=== PATIENT | male | born 1940 | race Caucasian/White ===

== ENCOUNTER 2019-05-17 10:07 | Inpatient (IN) ==
[2019-05-17] MEDS ORDERED: DEXTROSE 50% 25 GM/50 ML VIAL IV PRN ×2 (16:57→16:59)
[2019-05-17] MEDS ORDERED: GLUCAGON 1 MG VIAL IM PRN ×2 (16:57→16:59)
[2019-05-17] MEDS ORDERED: ACETAMINOPHEN 325 MG TABLET PO PRN (16:57)
[2019-05-17] MEDS ORDERED: INSULIN REGULAR 100 UNIT/ML ONE (18:47)
[2019-05-17] MEDS: INSULIN REGULAR 100 UNIT/ML SUBCUT SCH ×2 (18:51→21:00)
[2019-05-17 18:52] LABS: Hematocrit 24.8 VOL% (42.0-52.0); Immature Granulocytes % 10.3 %; Immature Granulocytes Absolute 0.07 #; Lymphocytes # 0.2 10*3/uL (1.4-4.0); Lymphocytes % 30.9 % (21.2-54.2); Mean Corpuscular HGB Conc 32.3 GM/DL (32-36); Mean Corpuscular Volume 104.6 FL (87-102); Monocytes % 8.8 % (1.7-12.7); Red Blood Count 2.37 MC/CUMM (3.8-5.5); Red Cell Distribution Width 15.9 % (9.3-17.3)
[2019-05-17 19:01] LABS: Platelet Count 12 T/CUMM (130-400); White Blood Count 0.7 T/CUMM (4-12)
[2019-05-17 19:04] LABS: INR 1.2; PT Patient Result 12.6 SECS (9.6-12.2)
[2019-05-17 19:12] LABS: Albumin 1.6 G/DL (3.4-5.0); Bilirubin,Total 0.7 MG/DL (0.2-1.0); Calcium 7.6 MG/DL (8.5-10.1); Osmolality,Calculated 281.4 MOS/KG (273-304); Total Protein 5.7 G/DL (6.4-8.3)
[2019-05-17 19:15] LABS: Anisocytosis 1+; Band Neutrophils 2 % (0-10); Elliptocytes Few; Lymphocytes 40 % (20-55); Segmented Neutrophils 51 % (50-85); Total Cells Counted 101
[2019-05-17 19:16] LABS: Hypochromasia 1+; Platelet Estimate Decreased; Polychromasia Few
[2019-05-17] MEDS: SODIUM CHLORIDE 0.9% 1,000 ML IV SCH (19:21)
[2019-05-17] MEDS ORDERED: ALBUTEROL/IPRATROPIUM 3 ML NEB RESP TX PRN (19:24)
[2019-05-18 02:23] LABS: Apearance,Urine CLEAR (Clear); Bilirubin,Urine Negative (Negative); Blood, Urine Negative (Negative); Glucose,Urine (UA) >=500 mg/dL (Negative); Ketones,Urine Negative (Negative); Nitrite,Urine Negative (Negative); Protein,Urine Negative; RBC,Urine 4 /HPF (0-4); Urine Color Yellow (Yellow); Urine Specific Gravity 1.025 (1.001-1.035); Urine Urobilinogen < 2.0 EU/DL (0.2-1.0); WBC,Urine <1 /HPF (0-6)
[2019-05-18 05:39] LABS: Hematocrit 25.1 VOL% (42.0-52.0); Hemoglobin 8.1 GM/DL (14.0-18.0); Immature Granulocytes % 9.5 %; Immature Granulocytes Absolute 0.07 #; Lymphocytes # 0.4 10*3/uL (1.4-4.0); Mean Corpuscular HGB Conc 32.3 GM/DL (32-36); Mean Corpuscular Volume 104.6 FL (87-102); Monocytes % 6.8 % (1.7-12.7); Neutrophils % 33.7 % (38.7-73.9)
[2019-05-18 05:45] LABS: Platelet Count 12 T/CUMM (130-400); White Blood Count 0.7 T/CUMM (4-12)
[2019-05-18 06:01] LABS: Risk Ratio 3.28
[2019-05-18 06:16] LABS: Calcium 7.9 MG/DL (8.5-10.1)
[2019-05-18 06:18] LABS: Band Neutrophils 13 % (0-10); Lymphocytes 50 % (20-55); Platelet Estimate Decreased; Segmented Neutrophils 25 % (50-85); Total Cells Counted 101
[2019-05-18 06:19] LABS: Hypochromasia Slight
[2019-05-18] MEDS: INSULIN REGULAR 100 UNIT/ML SUBCUT SCH ×4 (07:30→20:23)
[2019-05-18] MEDS ORDERED: SODIUM CHLORIDE 0.9% 1,000 ML IV PRN (07:54)
[2019-05-18] MEDS ORDERED: SODIUM CHLORIDE 0.9% 1,000 ML IV SCH (08:00)
[2019-05-18] MEDS ORDERED: FLUTICASONE FUROATE BOTH NARES SCH (09:00)
[2019-05-18] MEDS ORDERED: DOXAZOSIN 4 MG TABLET PO SCH (09:00)
[2019-05-18] MEDS ORDERED: FINASTERIDE 5 MG TABLET PO SCH (09:00)
[2019-05-18] MEDS: FUROSEMIDE 20 MG TABLET PO SCH (09:48)
[2019-05-18] MEDS: ESCITALOPRAM 10 MG TABLET PO SCH (09:49)
[2019-05-18] MEDS: SODIUM CHLORIDE 0.9% 1,000 ML IV SCH (09:50)
[2019-05-18] MEDS: METOPROLOL SUCCINATE XL 25 MG TABLET PO SCH (10:04)
[2019-05-18] MEDS: SODIUM CHLORIDE 0.9% IV SCH (12:14)
[2019-05-18] MEDS: AZACITIDINE IV SCH (12:14)
[2019-05-18] MEDS: ONDANSETRON 4 MG/2 ML VIAL IV PRN (12:15)
[2019-05-18] MEDS: ALBUTEROL/IPRATROPIUM 3 ML NEB RESP TX SCH ×2 (15:39→19:15)
[2019-05-18] MEDS: LEVOFLOXACIN 500 MG TABLET PO SCH (16:38)
[2019-05-18] MEDS: INSULIN GLARGINE 100 UNIT/ML SUBCUT SCH (16:38)
[2019-05-18] MEDS: DOXAZOSIN 4 MG TABLET PO SCH (20:22)
[2019-05-18] MEDS: FINASTERIDE 5 MG TABLET PO SCH (20:25)
[2019-05-18] MEDS ORDERED: ATORVASTATIN 40 MG TABLET PO SCH (21:00)
[2019-05-19] MEDS: ALBUTEROL/IPRATROPIUM 3 ML NEB RESP TX SCH ×4 (00:35→19:47)
[2019-05-19] MEDS ORDERED: FUROSEMIDE 20 MG TABLET PO ONE (00:46)
[2019-05-19 05:06] LABS: Hematocrit 25.8 VOL% (42.0-52.0); Hemoglobin 8.3 GM/DL (14.0-18.0); Immature Granulocytes % 9.4 %; Immature Granulocytes Absolute 0.12 #; Lymphocytes # 0.6 10*3/uL (1.4-4.0); Mean Corpuscular HGB Conc 32.2 GM/DL (32-36); Mean Corpuscular Volume 104.9 FL (87-102); Mean Platelet Volume 11.9 FL (9.6-12.0); Monocytes % 4.7 % (1.7-12.7); Neutrophils % 37.9 % (38.7-73.9); Red Blood Count 2.46 MC/CUMM (3.8-5.5); Red Cell Distribution Width 16.2 % (9.3-17.3); White Blood Count 1.3 T/CUMM (4-12)
[2019-05-19 05:10] LABS: Platelet Count 41 T/CUMM (130-400)
[2019-05-19 06:03] LABS: Lymphocytes 66 % (20-55); Segmented Neutrophils 28 % (50-85); Total Cells Counted 100
[2019-05-19 06:04] LABS: Atypical Lymphocytes Few; Hypochromasia 1+; Ovalocytes Slight; Platelet Estimate Decreased
[2019-05-19] MEDS: INSULIN REGULAR 100 UNIT/ML SUBCUT SCH ×3 (08:06→17:21)
[2019-05-19] MEDS: INSULIN GLARGINE 100 UNIT/ML SUBCUT SCH (08:48)
[2019-05-19] MEDS: ESCITALOPRAM 10 MG TABLET PO SCH (08:49)
[2019-05-19] MEDS: METOPROLOL SUCCINATE XL 25 MG TABLET PO SCH (08:49)
[2019-05-19] MEDS: FUROSEMIDE 20 MG TABLET PO SCH (08:50)
[2019-05-19] MEDS: SODIUM CHLORIDE 0.9% IV SCH (09:54)
[2019-05-19] MEDS: AZACITIDINE IV SCH (09:54)
[2019-05-19] MEDS: ONDANSETRON 4 MG/2 ML VIAL IV PRN (12:22)
[2019-05-19] MEDS: DOXAZOSIN 4 MG TABLET PO SCH (21:02)
[2019-05-19] MEDS: FINASTERIDE 5 MG TABLET PO SCH (21:02)
[2019-05-20] MEDS: INSULIN REGULAR 100 UNIT/ML SUBCUT SCH ×5 (01:25→21:32)
[2019-05-20] MEDS: ALBUTEROL/IPRATROPIUM 3 ML NEB RESP TX SCH ×4 (01:58→19:40)
[2019-05-20 04:38] LABS: Hematocrit 23.4 VOL% (42.0-52.0); Hemoglobin 7.6 GM/DL (14.0-18.0); Immature Granulocytes Absolute 0.07 #; Lymphocytes # 0.5 10*3/uL (1.4-4.0); Mean Corpuscular HGB Conc 32.5 GM/DL (32-36); Mean Corpuscular Volume 103.1 FL (87-102); Mean Platelet Volume 12.8 FL (9.6-12.0); Red Blood Count 2.27 MC/CUMM (3.8-5.5); Red Cell Distribution Width 16.1 % (9.3-17.3)
[2019-05-20 04:57] LABS: Platelet Count 32 T/CUMM (130-400)
[2019-05-20 05:04] LABS: Albumin 1.8 G/DL (3.4-5.0); Bilirubin,Total 1.4 MG/DL (0.2-1.0); Calcium 7.9 MG/DL (8.5-10.1); Total Protein 5.5 G/DL (6.4-8.3)
[2019-05-20 05:14] LABS: Eosinophils 5 % (0-10); Hypochromasia 1+; Lymphocytes 46 % (20-55); Segmented Neutrophils 42 % (50-85); Total Cells Counted 100
[2019-05-20 05:17] LABS: Anisocytosis 1+; Microcytosis 1+; Ovalocytes Few
[2019-05-20 05:18] LABS: Atypical Lymphocytes Few; Platelet Estimate Decreased
[2019-05-20] MEDS ORDERED: SODIUM CHLORIDE 0.9% 1,000 ML IV PRN (07:53)
[2019-05-20] MEDS: METOPROLOL SUCCINATE XL 25 MG TABLET PO SCH (09:38)
[2019-05-20] MEDS: FUROSEMIDE 20 MG TABLET PO SCH (09:38)
[2019-05-20] MEDS: ESCITALOPRAM 10 MG TABLET PO SCH (09:39)
[2019-05-20] MEDS: ONDANSETRON 4 MG/2 ML VIAL IV SCH (09:40)
[2019-05-20] MEDS: INSULIN GLARGINE 100 UNIT/ML SUBCUT SCH (09:43)
[2019-05-20] MEDS: SODIUM CHLORIDE 0.9% IV SCH (09:57)
[2019-05-20] MEDS: AZACITIDINE IV SCH (09:57)
[2019-05-20] MEDS ORDERED: ACETAMINOPHEN 500 MG TABLET PO SCH (10:00)
[2019-05-20] MEDS ORDERED: diphenhydrAMINE CAP 25 MG CAPSULE PO SCH (10:00)
[2019-05-20] MEDS ORDERED: ACETAMINOPHEN 500 MG TABLET PO ONE (11:28)
[2019-05-20] MEDS ORDERED: diphenhydrAMINE CAP 25 MG CAPSULE PO ONE (11:30)
[2019-05-20] MEDS: LEVOFLOXACIN 500 MG TABLET PO SCH (15:09)
[2019-05-20] MEDS: FINASTERIDE 5 MG TABLET PO SCH (21:31)
[2019-05-20] MEDS: DOXAZOSIN 4 MG TABLET PO SCH (21:31)
[2019-05-21] MEDS: ALBUTEROL/IPRATROPIUM 3 ML NEB RESP TX SCH ×4 (00:40→20:22)
[2019-05-21 04:47] LABS: Eosinophils % 0.9 % (0.00-10.9); Hematocrit 30.3 VOL% (42.0-52.0); Hemoglobin 9.9 GM/DL (14.0-18.0); Immature Granulocytes % 8.3 %; Immature Granulocytes Absolute 0.09 #; Lymphocytes # 0.5 10*3/uL (1.4-4.0); Lymphocytes % 46.8 % (21.2-54.2); Mean Corpuscular HGB Conc 32.7 GM/DL (32-36); Mean Corpuscular Volume 97.1 FL (87-102); Mean Platelet Volume 12.9 FL (9.6-12.0); Monocytes % 7.3 % (1.7-12.7); Neutrophils % 36.7 % (38.7-73.9); Red Blood Count 3.12 MC/CUMM (3.8-5.5); Red Cell Distribution Width 19.9 % (9.3-17.3); White Blood Count 1.1 T/CUMM (4-12)
[2019-05-21 04:56] LABS: Platelet Count 30 T/CUMM (130-400)
[2019-05-21 05:22] LABS: Hypochromasia 1+; Lymphocytes 57 % (20-55); Ovalocytes 1+; Platelet Estimate Decreased; Segmented Neutrophils 35 % (50-85); Tear Drop Cells Few
[2019-05-21 05:23] LABS: Atypical Lymphocytes Few; Reactive Lymphocytes Few; Total Cells Counted 100
[2019-05-21] MEDS: ONDANSETRON 4 MG/2 ML VIAL IV SCH (08:45)
[2019-05-21] MEDS: INSULIN GLARGINE 100 UNIT/ML SUBCUT SCH (08:46)
[2019-05-21] MEDS: INSULIN REGULAR 100 UNIT/ML SUBCUT SCH ×4 (08:46→21:24)
[2019-05-21] MEDS: ESCITALOPRAM 10 MG TABLET PO SCH (08:47)
[2019-05-21] MEDS: METOPROLOL SUCCINATE XL 25 MG TABLET PO SCH (08:47)
[2019-05-21] MEDS: FUROSEMIDE 20 MG TABLET PO SCH (08:47)
[2019-05-21] MEDS: AZACITIDINE IV SCH (09:32)
[2019-05-21] MEDS: SODIUM CHLORIDE 0.9% IV SCH (09:32)
[2019-05-21] MEDS ORDERED: metFORMIN 500 MG TABLET PO SCH (17:00)
[2019-05-21] MEDS: DOXAZOSIN 4 MG TABLET PO SCH (21:24)
[2019-05-21] MEDS: FINASTERIDE 5 MG TABLET PO SCH (21:24)
[2019-05-22] MEDS: ALBUTEROL/IPRATROPIUM 3 ML NEB RESP TX SCH ×3 (00:28→13:45)
[2019-05-22 05:05] LABS: Basophils % 0.9 % (0.0-0.8); Eosinophils % 0.9 % (0.00-10.9); Hematocrit 28.7 VOL% (42.0-52.0); Hemoglobin 9.2 GM/DL (14.0-18.0); Immature Granulocytes % 5.3 %; Immature Granulocytes Absolute 0.06 #; Lymphocytes # 0.5 10*3/uL (1.4-4.0); Lymphocytes % 42.1 % (21.2-54.2); Mean Corpuscular HGB Conc 32.1 GM/DL (32-36); Mean Corpuscular Volume 98.6 FL (87-102); Mean Platelet Volume 11.7 FL (9.6-12.0); Monocytes % 8.8 % (1.7-12.7); Red Blood Count 2.91 MC/CUMM (3.8-5.5); Red Cell Distribution Width 19.1 % (9.3-17.3); White Blood Count 1.1 T/CUMM (4-12)
[2019-05-22 05:09] LABS: Platelet Count 32 T/CUMM (130-400)
[2019-05-22 05:50] LABS: Atypical Lymphocytes Few; Hypochromasia 1+; Lymphocytes 53 % (20-55); Segmented Neutrophils 44 % (50-85); Total Cells Counted 100
[2019-05-22 05:51] LABS: Anisocytosis 1+; Microcytosis 1+; Ovalocytes Slight; Platelet Estimate Decreased
[2019-05-22] MEDS ORDERED: metFORMIN 500 MG TABLET PO SCH ×2 (09:25→17:00)
[2019-05-22] MEDS: INSULIN REGULAR 100 UNIT/ML SUBCUT SCH ×2 (10:03→13:10)
[2019-05-22] MEDS: INSULIN GLARGINE 100 UNIT/ML SUBCUT SCH (10:04)
[2019-05-22] MEDS: ESCITALOPRAM 10 MG TABLET PO SCH (10:10)
[2019-05-22] MEDS: FUROSEMIDE 20 MG TABLET PO SCH (10:10)
[2019-05-22] MEDS: METOPROLOL SUCCINATE XL 25 MG TABLET PO SCH (10:10)
[2019-05-22] MEDS: ONDANSETRON 4 MG/2 ML VIAL IV SCH (10:10)
[2019-05-22] MEDS: AZACITIDINE IV SCH (10:41)
[2019-05-22] MEDS: SODIUM CHLORIDE 0.9% IV SCH (10:41)
[2019-05-22] MEDS ORDERED: GLIMEPIRIDE 2 MG TABLET PO SCH ×3 (12:28→13:30)
[2019-05-22 12:43] VITALS: BP 118/68
[2019-05-22] MEDS: LEVOFLOXACIN 500 MG TABLET PO SCH (14:23)
== END 2019-05-22 15:40 | disposition home health service (06) | DRG 811 ==
LOC: SUATTDRO 16:52 → N.4E 16:52
PROVIDERS: ADMIT Internal Medicine; ATTEND Internal Medicine

== ENCOUNTER 2019-06-06 08:13 | Inpatient (IN) ==
[2019-06-06 09:05] LABS: Basophils % 1.2 % (0.0-0.8); Eosinophils % 1.2 % (0.00-10.9); Hematocrit 25.4 VOL% (42.0-52.0); Hemoglobin 8.3 GM/DL (14.0-18.0); Lymphocytes # 0.5 10*3/uL (1.4-4.0); Lymphocytes % 54.8 % (21.2-54.2); Mean Corpuscular HGB Conc 32.7 GM/DL (32-36); Mean Corpuscular Volume 97.3 FL (87-102); Mean Platelet Volume 10.5 FL (9.6-12.0); Monocytes % 7.1 % (1.7-12.7); Neutrophils % 35.7 % (38.7-73.9); Platelet Count 66 T/CUMM (130-400); Red Blood Count 2.61 MC/CUMM (3.8-5.5); Red Cell Distribution Width 18.6 % (9.3-17.3)
[2019-06-06 09:08] LABS: White Blood Count 0.8 T/CUMM (4-12)
[2019-06-06] MEDS ORDERED: LACTATED RINGERS 200 ML IV ONE (09:14)
[2019-06-06 09:31] LABS: Alanine Aminotransferase 82 U/L (16-61); Albumin 2.2 G/DL (3.4-5.0); Alkaline Phosphatase 173 U/L (45-117); Aspartate Amino Transferase 52 U/L (0-37); Blood Urea Nitrogen 16 MG/DL (7-18); Calcium 8.3 MG/DL (8.5-10.1); Estimated Glom Filtration Rate 97 ML/MIN; Glucose 128 MG/DL (74-106); Osmolality,Calculated 270.2 MOS/KG (273-304); Total Protein 6.6 G/DL (6.4-8.3)
[2019-06-06 09:32] LABS: Lymphocytes 90 % (20-55); Segmented Neutrophils 10 % (50-85)
[2019-06-06 09:33] LABS: Anisocytosis 1+; Ovalocytes Slight; Polychromasia Few; Total Cells Counted 100
[2019-06-06 09:34] LABS: Platelet Estimate Decreased
[2019-06-06 10:24] LABS: Apearance,Urine CLEAR (Clear); Bacteria,Urine Occasional /HPF (Few); Bilirubin,Urine Negative (Negative); Blood, Urine Negative (Negative); Glucose,Urine (UA) Negative (Negative); Hyaline Casts,Urine 3 /LPF (0-3); Ketones,Urine Negative (Negative); Mucus,Urine Many /LPF (Occasional); Nitrite,Urine Negative (Negative); Protein,Urine 30 MG/DL; RBC,Urine 4 /HPF (0-4); Squamous Epithelial Cell,Urine Occasional /HPF (0-10); Urine Color Amber (Yellow); Urine Specific Gravity 1.021 (1.001-1.035); WBC,Urine 3 /HPF (0-6)
[2019-06-06] MEDS ORDERED: DOCUSATE SODIUM 100 MG CAPSULE PO PRN (11:35)
[2019-06-06] MEDS ORDERED: GLUCAGON 1 MG VIAL IM PRN (11:35)
[2019-06-06] MEDS ORDERED: ACETAMINOPHEN 325 MG TABLET PO PRN (11:35)
[2019-06-06] MEDS ORDERED: DEXTROSE 50% 25 GM/50 ML VIAL IV PRN (11:35)
[2019-06-06] MEDS ORDERED: SODIUM CHLORIDE 0.9% 1,000 ML IV SCH (12:00)
[2019-06-06] MEDS: ALBUTEROL/IPRATROPIUM 3 ML NEB RESP TX SCH ×2 (12:43→19:10)
[2019-06-06] MEDS: CEFTAROLINE 600 MG in SODIUM CHLORIDE 0.9% 100 ML IV SCH ×2 (13:49→23:19)
[2019-06-06] MEDS: MIDODRINE 5 MG TABLET PO SCH ×2 (14:51→20:31)
[2019-06-06] MEDS: INSULIN LISPRO 100 UNIT/ML SUBCUT SCH ×2 (16:45→20:30)
[2019-06-06] MEDS: metFORMIN 500 MG TABLET PO SCH (17:27)
[2019-06-06] MEDS: FUROSEMIDE 40 MG/4 ML VIAL IV SCH (18:07)
[2019-06-06] MEDS: ATORVASTATIN 40 MG TABLET PO SCH (20:31)
[2019-06-06] MEDS: DOXAZOSIN 4 MG TABLET PO SCH (22:40)
[2019-06-06] MEDS: FINASTERIDE 5 MG TABLET PO SCH (22:40)
[2019-06-07] MEDS: ONDANSETRON 4 MG/2 ML VIAL IV PRN (00:25)
[2019-06-07 05:11] LABS: Eosinophils % 1.1 % (0.00-10.9); Hematocrit 21.1 VOL% (42.0-52.0); Immature Granulocytes % 4.4 %; Immature Granulocytes Absolute 0.04 #; Lymphocytes # 0.6 10*3/uL (1.4-4.0); Lymphocytes % 65.6 % (21.2-54.2); Mean Corpuscular HGB Conc 33.2 GM/DL (32-36); Mean Corpuscular Volume 96.8 FL (87-102); Mean Platelet Volume 10.6 FL (9.6-12.0); Monocytes % 6.7 % (1.7-12.7); Neutrophils % 22.2 % (38.7-73.9); Platelet Count 58 T/CUMM (130-400); Red Blood Count 2.18 MC/CUMM (3.8-5.5); Red Cell Distribution Width 18.7 % (9.3-17.3)
[2019-06-07 05:20] LABS: White Blood Count 0.9 T/CUMM (4-12)
[2019-06-07 05:29] LABS: Calcium 7.9 MG/DL (8.5-10.1); Osmolality,Calculated 267.4 MOS/KG (273-304)
[2019-06-07 05:44] LABS: % Iron Saturation 38.8 % (18-50); Ferritin 5296.6 ng/ml (26-388); Folate 7.1 NG/ML (5.4-24.0); Vitamin B12 1336 PG/ML (211-911)
[2019-06-07 05:51] LABS: Lymphocytes 74 % (20-55); Myelocytes 2 %; Segmented Neutrophils 18 % (50-85); Total Cells Counted 100
[2019-06-07 05:52] LABS: Anisocytosis 1+; Ovalocytes 1+; Platelet Estimate Decreased
[2019-06-07 07:12] LABS: Sedimentation Rate-Westergren 128 MM/HR (0-20)
[2019-06-07] MEDS: ALBUTEROL/IPRATROPIUM 3 ML NEB RESP TX SCH ×3 (07:42→20:30)
[2019-06-07] MEDS: MIDODRINE 5 MG TABLET PO SCH ×3 (09:15→20:34)
[2019-06-07] MEDS: metFORMIN 500 MG TABLET PO SCH ×2 (09:15→19:19)
[2019-06-07] MEDS: PANTOPRAZOLE 40 MG TABLET PO SCH (09:15)
[2019-06-07] MEDS: GLIMEPIRIDE 2 MG TABLET PO SCH (09:16)
[2019-06-07] MEDS: FUROSEMIDE 40 MG/4 ML VIAL IV SCH ×2 (09:17→17:05)
[2019-06-07] MEDS: INSULIN LISPRO 100 UNIT/ML SUBCUT SCH ×4 (11:00→21:41)
[2019-06-07] MEDS: CEFTAROLINE 600 MG in SODIUM CHLORIDE 0.9% 100 ML IV SCH (17:04)
[2019-06-07] MEDS: ATORVASTATIN 40 MG TABLET PO SCH (20:34)
[2019-06-07] MEDS: DOXAZOSIN 4 MG TABLET PO SCH (20:34)
[2019-06-07] MEDS: FINASTERIDE 5 MG TABLET PO SCH (20:34)
[2019-06-08] MEDS: CEFTAROLINE 600 MG in SODIUM CHLORIDE 0.9% 100 ML IV SCH (00:13)
[2019-06-08] MEDS: ONDANSETRON 4 MG/2 ML VIAL IV PRN (04:25)
[2019-06-08 05:57] LABS: Eosinophils % 1.4 % (0.00-10.9); Hemoglobin 9.1 GM/DL (14.0-18.0); Immature Granulocytes % 6.8 %; Immature Granulocytes Absolute 0.05 #; Lymphocytes # 0.4 10*3/uL (1.4-4.0); Lymphocytes % 54.1 % (21.2-54.2); Mean Corpuscular HGB Conc 33.7 GM/DL (32-36); Mean Corpuscular Volume 93.8 FL (87-102); Mean Platelet Volume 10.9 FL (9.6-12.0); Monocytes % 8.1 % (1.7-12.7); Neutrophils % 29.6 % (38.7-73.9); Platelet Count 64 T/CUMM (130-400); Red Blood Count 2.88 MC/CUMM (3.8-5.5); Red Cell Distribution Width 18.4 % (9.3-17.3)
[2019-06-08 06:00] LABS: White Blood Count 0.7 T/CUMM (4-12)
[2019-06-08 06:20] LABS: Osmolality,Calculated 269.4 MOS/KG (273-304)
[2019-06-08 06:37] LABS: Anisocytosis 2+; Lymphocytes 52 % (20-55); Macrocytosis 1+; Platelet Estimate Decreased; Segmented Neutrophils 32 % (50-85); Total Cells Counted 100
[2019-06-08] MEDS: ALBUTEROL/IPRATROPIUM 3 ML NEB RESP TX SCH (07:13)
[2019-06-08 08:01] VITALS: BP 118/64
[2019-06-08] MEDS: INSULIN LISPRO 100 UNIT/ML SUBCUT SCH (08:36)
[2019-06-08] MEDS: MIDODRINE 5 MG TABLET PO SCH (08:37)
[2019-06-08] MEDS: FUROSEMIDE 40 MG/4 ML VIAL IV SCH (08:37)
[2019-06-08] MEDS: GLIMEPIRIDE 2 MG TABLET PO SCH (08:38)
[2019-06-08] MEDS: PANTOPRAZOLE 40 MG TABLET PO SCH (08:38)
[2019-06-08] MEDS: metFORMIN 500 MG TABLET PO SCH (08:38)
[2019-06-08] MEDS ORDERED: FILGRASTIM-SNDZ 300 MCG/0.5 ML SYRINGE SUBCUT SCH (09:00)
[2019-06-08 09:02] LABS: Hemoglobin A1 (Alkaline) 97.1 % (96.5-98.5); Hemoglobin A2 (Alkaline) 2.9 % (1.5-3.5)
[2019-06-08] MEDS ORDERED: DOXAZOSIN 4 MG TABLET PO SCH (21:00)
[2019-06-09 16:20] LABS: Soluble Transf Receptor (sTfR) 1.9 mg/L (1.8 - 4.6)
[2019-06-10 10:01] LABS: Procalcitonin, S 0.13 ng/mL (<=0.15)
== END 2019-06-08 11:25 | disposition home health service (06) | DRG 312 ==
LOC: N.ED 08:13 → N.EDINP 11:18 → N.4E 13:34
PROVIDERS: ADMIT Hospitalist; ATTEND Hospitalist